=== PATIENT | male | born 1935 | race Caucasian/White ===

== ENCOUNTER 2021-04-14 20:39 | Emergency (ER) | payer MEDICARE ==
[~2021-04-14] VITALS: Ht 157.5 cm; Wt 73.0 kg
[2021-04-14 20:45] VITALS: BP 166/89
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
== END 2021-04-14 22:00 | disposition home or self-care (01) ==
LOC: ER 21:51
DX: M79.605 Pain in left leg (principal); M10.9 Gout, unspecified
CPT/HCPCS: 99281

== ENCOUNTER → 2021-04-15 | Outpatient (CLI) | payer MEDICARE ==
[2021-04-14 20:45] VITALS: BP 166/89
--- NOTE | 2021-04-15 15:15 | RAD ---
EXAM: Lumbar spine MRI without contrast. HISTORY: Pain. TECHNIQUE: Multiplanar, multisequence magnetic resonance imaging of the lumbar spine was performed wi thout contrast. COMPARISON: None. FINDINGS: There is mild lumbar scoliosis. There is 2 mm grade 1 anterolisthesis of L5 on S1. There is multilevel endplate remodeling. There is disc space narrowing predominantly at L2 4 to L5. There is a posterior inferior endplate Schmorl's node at L4. There is no fracture. There is no suspicious osse ous lesion. The conus terminates at L1. At L1-L2, there is no stenosis. At L2-L3, there is a broad-based left lateral disc protrusion and annular tear superimposed on a disc bulge and endplate remodeling. There is minimal central canal stenosis. At L3-L4, there is a left paracentral to lateral recess disc protrusion and 3 mm inferior extrusion s uperimposed on a disc bulge and endplate remodeling. There is also a left extra foraminal annular tea r. There is mild bilateral facet arthropathy. There is effacement of the left lateral recess and nessa ation of the traversing left nerve roots. There is mild central canal stenosis. At L4-L5, there is a disc bulge with endplate remodeling and left foraminal annular tear. There is mi ld bilateral facet arthropathy. There is mild left foraminal stenosis. At L5-S1, there is a left lateral recess to extra foraminal disc protrusion with slight superior extr usion superimposed on a left lateral prominent disc bulge and endplate remodeling. There is severe ri ght and mild left facet arthropathy. There is moderate right and severe left foraminal stenosis with effacement of the exiting left L5 nerve root. There is mild central canal stenosis. IMPRESSION: Multilevel degenerative change involving the lumbar spine, described in detail above. Thi s is associated with minimal central canal stenosis at L2-L3, effacement of the left lateral recess a nd deviation of the traversing left nerve roots with mild central canal stenosis at L3-L4, mild left foraminal stenosis at L4-L5, and moderate right and severe left foraminal stenosis with effacement of the exiting left L5 nerve root and mild central canal stenosis at L5-S1. Electronically signed by: Yazmin Andrade MD (04/15/2021 3:13 PM) [id number]
--- NOTE | 2021-04-15 15:33 | RAD ---
EXAM: Left femur, 2 views; left tibia and fibula, 2 views. HISTORY: Pain. COMPARISON: None. FINDINGS: 2 views of the femur and tibia and fibula are obtained. There is no acute fracture, disloca tion or subluxation. There is no suspicious lytic or sclerotic osseous lesion. There is medial compar tment joint space narrowing and tricompartmental spurring of the left knee. There is enthesopathy hira ng the superior left patella. There are vascular calcifications. There is a suspected intra-articular osteophyte arising from the tibial spines. There is minimal marginal acetabular and femoral head spu rring. The femoral head is normal in configuration. There is a small plantar spur. There is enthesopa thy at Achilles tendon insertion. IMPRESSION: 1. 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 2. Minimal left hip osteoarthritis. Electronically signed by: Yazmin Andrade MD (04/15/2021 3:31 PM) [id number]
--- NOTE | 2021-04-15 16:55 | RAD ---
Study: MRI of the left hip without contrast INDICATION: Left hip pain. COMPARISON: Left hip radiographs 03/21/2021; CT abdomen/pelvis 10/01/2020 TECHNIQUE: Multiplanar MR imaging of the left hip performed without the use of intravenous or intra-a rticular contrast. FINDINGS: Bones/hip: No fracture, stress reaction or avascular necrosis at the left hip. No acute or aggressive marrow signal abnormality elsewhere throughout the pelvis. Incompletely evaluated degenerative emerson es at the lower lumbar spine. Left hip arthrosis is mild with femoral head/neck junction osteophyte f ormation and degenerative ridging along the acetabular lip. No subchondral edema or cystic change. Labrum/cartilage: Multifocal degenerative tearing of the labrum as best seen from anterior to superio r on sagittal images 14 through 17. High-grade chondrosis at the more anterior aspect of the superior acetabulum, sagittal image 15. Ligamentum teres: Heterogeneous but intact. Greater trochanteric bursa: Unremarkable. Musculotendinous: No high-grade or full-thickness tendon tear or around the left hip. No localized mu scular edema. No significant narrowing of the ischiofemoral space. Miscellaneous: Minimal joint fluid at the left hip. No mass or fluid collection seen along the left s ciatic nerve bundle. Mildly prominent and heterogeneous prostate gland. Several colonic diverticuli. IMPRESSION: 1. Relatively mild arthrosis at the left hip considering patient age. High-grade chondrosis at the a nterior margin of the superior acetabulum. Multifocal degenerative labral tearing best appreciated fr om anterior to superior. No resultant subchondral edema/cystic change. No avascular necrosis, stress reaction or fracture. 2. No acute or significant chronic tendon abnormality around the left hip. Electronically signed by: BETZAIDA MARTINEZ MD (04/15/2021 4:52 PM) [id number]
== END ==
LOC: MRI 13:10
PROVIDERS: ATTEND Family Medicine
DX: S73.192A Other sprain of left hip, initial encounter (principal); K57.30 Diverticulosis of large intestine without perforation or abscess without bleeding; M17.12 Unilateral primary osteoarthritis, left knee; M16.12 Unilateral primary osteoarthritis, left hip; M76.892 Other specified enthesopathies of left lower limb, excluding foot; M25.862 Other specified joint disorders, left knee; M77.32 Calcaneal spur, left foot; M94.352 Chondrolysis, left hip; M51.27 Other intervertebral disc displacement, lumbosacral region; M43.17 Spondylolisthesis, lumbosacral region; M76.62 Achilles tendinitis, left leg; M51.46 Schmorl's nodes, lumbar region; M47.26 Other spondylosis with radiculopathy, lumbar region; M48.07 Spinal stenosis, lumbosacral region; M48.8X7 Other specified spondylopathies, lumbosacral region; X58.XXXA Exposure to other specified factors, initial encounter; Y92.89 Other specified places as the place of occurrence of the external cause; Y99.8 Other external cause status; Y93.89 Activity, other specified
CPT/HCPCS: 72148; 73552; 73590; 73721